=== PATIENT | female | born 1985 | race Caucasian/White ===

== ENCOUNTER 2024-03-01 15:12 | Emergency (ER) | payer BC ==
[~2024-03-01] VITALS: Ht 165.1 cm; Wt 90.3 kg
[2024-03-01] MEDS ORDERED: ZEPBOUND5 MG/0.5 M SQ (15:39)
[2024-03-01] MEDS ORDERED: Ketorolac Tromethamine 15 MG/ML VIAL IV ONE (15:45)
[2024-03-01] MEDS ORDERED: MORPHINE Sulfate 2 MG/ML SYR IV ONE (15:45)
[2024-03-01] MEDS ORDERED: SODIUM CHLORIDE 0.9% 1,000 ML IV ONE (15:45)
[2024-03-01] MEDS ORDERED: Ondansetron Hydrochloride 4 MG/2 ML VIAL IV ONE (15:45)
[2024-03-01 16:03] LABS: BASO % 0.3 % (0.0-1.0); EOS # 0.2 10*3/uL (0.0-0.4); EOS % 1.4 % (1.0-4.0); HEMATOCRIT 47.4 % (37.0-47.0); MEAN CORPUSCULAR HGB 29.9 pg (27.0-31.0); MEAN CORPUSCULAR HGB CONC 32.9 g/dl (33.0-37.0); MEAN PLATELET VOLUME 10.2 fl (9.6-12.3); MONO # 0.5 10*3/uL (0.1-1.0); MONO % 3.2 % (3.0-9.0); NEUT # 12.6 10*3/uL (2.3-7.9); NEUT % 86.6 % (47.0-73.0); PLATELET COUNT AUTOMATED 318 10*3/uL (130-400); RED BLOOD COUNT 5.21 10*6/uL (4.10-5.10); RED CELL DISTRI WIDTH 12.4 % (0-14.5); WHITE BLOOD COUNT 14.6 10*3/uL (4.8-10.8)
[2024-03-01 16:27] LABS: ALKALINE PHOSPHATASE 86 U/L (46-116); BUN 13 mg/dl (9-23); CHLORIDE 104 mmol/L (98-107); LIPASE 37 U/L (12-53); POTASSIUM 3.6 mmol/L (3.4-5.1); SGPT/ALT 23 U/L (5-49)
[2024-03-01] MEDS ORDERED: METRONIDAZOLE 500 MG TAB PO ONE (17:20)
[2024-03-01] MEDS ORDERED: Ciprofloxacin Hydrochloride 500 MG TAB PO ONE (17:20)
[2024-03-01] MEDS ORDERED: CIPRO500 MG PO (17:25)
[2024-03-01] MEDS ORDERED: METRONIDAZOLE500 M1 PO (17:25)
[2024-03-01] MEDS ORDERED: Ondansetron4 MG PO (17:25)
[2024-03-01] MEDS ORDERED: MELOXICAM15 MG PO (17:25)
== END 2024-03-01 17:47 | disposition home or self-care (01) ==
LOC: ED 15:12
PROVIDERS: Emergency Medicine
DX: K52.9 Noninfective gastroenteritis and colitis, unspecified (principal); I10 Essential (primary) hypertension; Z88.1 Allergy status to other antibiotic agents

== ENCOUNTER 2024-06-15 14:02 | Emergency (ER) | payer BC ==
[~2024-06-15] VITALS: Ht 165.1 cm; Wt 77.1 kg
[~2024-06-15 14:02] MED LIST: CIPRO500 MG PO; MELOXICAM15 MG PO; METRONIDAZOLE500 M1 PO; Ondansetron4 MG PO; ZEPBOUND5 MG/0.5 M SQ
== END 2024-06-15 14:56 | disposition home or self-care (01) ==
LOC: ED 14:02
DX: S60.222A Contusion of left hand, initial encounter (principal); Z88.1 Allergy status to other antibiotic agents; Z79.899 Other long term (current) drug therapy; W55.12XA Struck by horse, initial encounter; Y93.89 Activity, other specified; Y92.89 Other specified places as the place of occurrence of the external cause; Y99.8 Other external cause status